=== PATIENT | female | born 1960 | race Caucasian/White ===

== ENCOUNTER 2016-09-27 08:41 | Emergency (ER) | payer MEDICAID ==
[~2016-09-27] VITALS: Ht 157.5 cm; Wt 138.7 kg
[~2016-09-27 08:41] MED LIST: ACET-1757 PO; ALLO300T PO; ALPR-475 PO; ALPR0.5T10 PO; ALPR0.5T6 PO; AMIO200T PO; AMIO400T4 PO; AMLO10TA2 PO; AMLO5TAB2 PO; AMOX-367 PO; AMOX1TAB12 PO; AMOX1TAB64 PO; ASPI-496 PO; ATOR80TA75 PO; AZIT500T PO; BISA10SU54 PR; BUME1TAB21 PO; CALC0.25 PO; CARV6.252 PO; CEFD300C2 PO; CEPH-376 PO; CETI10TA18 PO; CLIN300C93 PO; CLON0.1T PO; CLOP75TA22 PO; COLC0.6T37 PO; DOCU-30 PO; DOXY100T PO; ERGO500017 PO; FEBU40TA PO; FERR325T20 PO; FLUT1DIS5 IH; FURO-92 PO; FURO40TA6 PO; FURO80TA77 PO; GLYB2.5T2 PO; GLYB5TAB3 PO; GUAI200T3 PO; GUAI237S4 PO; HYDR-3138 PO; HYDR-3342 PO; INDO50CA PO; INSU100V10 SC; INSU100V13 SQ-INSULIN; INSU100V5 SQ-INSULIN; IPRA3AMP INH; LACT1CAP24 PO; LEVO250T23 PO; LEVO25TA2 PO; LEVO750T26 PO; LINE600T37 PO; LISI2.5T PO; LOSA50TA2 PO; METF500T4 PO; METO2.5T PO; METO25TA35 PO; METO5TAB5 PO; NITR100C6 PO; NITR50CA11 PO; NYST15PO9 TP; PANT40TA3 PO; POTA10TA11 PO; POTA20PA PO; POTA20TA14 PO; POTA20TA6 PO; POTA20TA89 PO; PRED10TA14 PO; PRED20TA PO; PRED5TAB PO; RIVA20TA PO; ROFL500T PO; SPIR50TA PO; TRAM50TA2 PO; WARF1TAB7 PO; WARF2.5T PO; WARF5TAB PO; WARF5TAB7 PO; ZOLP10TA5 PO
[2016-09-27 09:55] LABS: HEMOGLOBIN 10.5 g/dL (11.7-16.4)
[2016-09-27 10:07] LABS: BLOOD UREA NITROGEN 100 mg/dL (7-18)
[2016-09-27 11:21] VITALS: BP 102/40
[2016-09-27] MEDS ORDERED: SEVE800T PO (11:29)
== END 2016-09-27 12:11 | disposition home or self-care (01) ==
LOC: ED 11:40
DX: N18.6 End stage renal disease (principal); E66.01 Morbid (severe) obesity due to excess calories; D64.9 Anemia, unspecified; G89.29 Other chronic pain; Z99.2 Dependence on renal dialysis; I73.9 Peripheral vascular disease, unspecified; J44.9 Chronic obstructive pulmonary disease, unspecified; I48.91 Unspecified atrial fibrillation; I50.9 Heart failure, unspecified; Z86.73 Personal history of transient ischemic attack (TIA), and cerebral infarction without residual deficits; Z88.1 Allergy status to other antibiotic agents
CPT/HCPCS: 36415; 74176; 80048; 82040; 85025

== ENCOUNTER → 2016-11-02 | Outpatient (CLI) | payer MEDICAID ==
[~2016-11-02] MED LIST changes: -CEFD300C2 PO; +CEFD300C37 PO; +SEVE800T PO
== END | disposition home or self-care (01) ==
LOC: WOUND 09:40
PROVIDERS: ATTEND Internal Medicine
DX: E11.622 Type 2 diabetes mellitus with other skin ulcer (principal); L89.892 Pressure ulcer of other site, stage 2; E78.5 Hyperlipidemia, unspecified; I48.91 Unspecified atrial fibrillation; G47.33 Obstructive sleep apnea (adult) (pediatric); E11.22 Type 2 diabetes mellitus with diabetic chronic kidney disease; I13.2 Hypertensive heart and chronic kidney disease with heart failure and with stage 5 chronic kidney disease, or end stage renal disease; I50.9 Heart failure, unspecified; N18.6 End stage renal disease; Z99.2 Dependence on renal dialysis; E66.01 Morbid (severe) obesity due to excess calories; Z68.43 Body mass index [BMI] 50.0-59.9, adult; Z72.89 Other problems related to lifestyle
CPT/HCPCS: 97597; 99215

== ENCOUNTER 2016-12-29 07:07 | Emergency (ER) | payer MEDICAID ==
[~2016-12-29] VITALS: Ht 157.5 cm; Wt 140.0 kg
[2016-12-29] MEDS ORDERED: OXYcodone/APAP 5/325MG TABLET PO ONE (07:30)
[2016-12-29] MEDS ORDERED: OXYcodone/APAP 5/325MG TABLET ONE (07:50)
[2016-12-29 10:36] VITALS: BP 129/62
== END 2016-12-29 10:38 | disposition home or self-care (01) ==
LOC: ED 07:23
DX: S92.325A Nondisplaced fracture of second metatarsal bone, left foot, initial encounter for closed fracture (principal); S82.62XA Displaced fracture of lateral malleolus of left fibula, initial encounter for closed fracture; J44.9 Chronic obstructive pulmonary disease, unspecified; I48.91 Unspecified atrial fibrillation; E03.9 Hypothyroidism, unspecified; E11.9 Type 2 diabetes mellitus without complications; I50.9 Heart failure, unspecified; I73.9 Peripheral vascular disease, unspecified; I11.0 Hypertensive heart disease with heart failure; Z86.73 Personal history of transient ischemic attack (TIA), and cerebral infarction without residual deficits; Z79.01 Long term (current) use of anticoagulants; W01.0XXA Fall on same level from slipping, tripping and stumbling without subsequent striking against object, initial encounter; Y93.89 Activity, other specified; Y92.098 Other place in other non-institutional residence as the place of occurrence of the external cause; Y99.8 Other external cause status
CPT/HCPCS: 29515; 36415; 85610

== ENCOUNTER 2017-08-01 16:52 | Inpatient (IN) | payer MEDICARE ==
[~2017-08-01] VITALS: Ht 157.5 cm; Wt 143.2 kg
[~2017-08-01 16:52] MED LIST changes: -AMIO400T4 PO; +AMIO400T5 PO; +ATOR-2 PO; -ATOR80TA75 PO; +CINA30TA2 PO; +CLIN300C8 PO; -CLIN300C93 PO; -CLOP75TA22 PO; +CLOP75TA52 PO; +DOCU-131 PO; -DOCU-30 PO; +FERR325T18 PO; -FERR325T20 PO; -HYDR-3138 PO; +HYDR-3237 PO; -INSU100V10 SC; +INSU100V11 SC; -SEVE800T PO; +SEVE800T7 PO
[2017-08-01] MEDS ORDERED: ALBUTEROL/IPRATROPIUM 2.5MG/0.5MG, 3 ML NPPB ONE (17:30)
[2017-08-01] MEDS ORDERED: ALBUTEROL/IPRATROPIUM 2.5MG/0.5MG, 3 ML ONE (17:38)
[2017-08-01 18:02] LABS: ALBUMIN 2.5 g/dL (3.4-5.0); ANION GAP 11 mmol/L (5-15); CHLORIDE 95 mmol/L (98-107); CREATININE 3.95 mg/dL (0.55-1.02)
[2017-08-01 18:06] LABS: TROPONIN I < 0.015 ng/mL (0.000-0.045)
[2017-08-01 18:11] LABS: MEAN CORPUSCULAR HEMOGLOBIN 31.5 pg (27.0-34.8); MEAN CORPUSCULAR HGB CONC 32.2 g/dL (32.4-35.8); MEAN CORPUSCULAR VOLUME 97.9 fL (80-100); MEAN PLATELET VOLUME 7.9 fL (7.4-10.4); PLATELET COUNT 405 x10^3/uL (130-400); RED BLOOD COUNT 2.88 x10^6/uL (3.82-5.3); RED CELL DISTRIBUTION WIDTH 18.2 % (9.6-15.2)
[2017-08-01 18:12] LABS: MD YES
[2017-08-01 18:15] LABS: BAND#(MANUAL) 0.17 x10^3/uL; BANDS%(MANUAL) 2 % (0-7); LYMPH#(MANUAL) 0.78 x10^3/uL (1-3.4); LYMPHS% (MANUAL) 9 % (22-44); MONOS#(MANUAL) 1.04 x10^3/uL (0.3-2.7); MONOS% (MANUAL) 12 % (2-9); MYELOCYTES# (MANUAL) 0.26 x10^3/uL (0-0); MYELOCYTES% (MANUAL) 3 % (0-0); SEG#(MANUAL) 6.35 x10^3/uL (1.8-6.8); SEGS% (MANUAL) 73 % (42-75)
[2017-08-01 18:16] LABS: ANISOCYTOSIS 1+; METAMYELOCYTES# (MANUAL) 0.09 x10^3/uL (0-0); METAMYELOCYTES% (MANUAL) 1 % (0-1); POLYCHROMASIA 1+
[2017-08-01 18:17] LABS: <PLATELET ESTIMATE> INCREASED; LARGE PLATELETS 1+
[2017-08-01] MEDS ORDERED: methylPREDNISolone SOD SUCC 125 MG/2 ML ONE (19:59)
[2017-08-01] MEDS: methylPREDNISolone SOD SUCC 125 MG/2 ML IVPush SCH ×2 (20:17→21:47)
[2017-08-01] MEDS ORDERED: ALBU18HF INH (20:24)
[2017-08-01] MEDS ORDERED: NYST1POW2 TP (20:28)
[2017-08-01] MEDS ORDERED: SEVE800T8 PO (20:30)
[2017-08-01 21:35] VITALS: BP 151/63
[2017-08-01 21:58] LABS: INTERNATIONAL NORMALIZED RATIO 2.5 (0.93-1.1); PROTHROMBIN TIME 25.3 Seconds (9.6-11.5)
[2017-08-01] MEDS ORDERED: ONDANSETRON ODT 4 MG PO PRN (22:00)
[2017-08-01] MEDS ORDERED: ONDANSETRON 2MG/ML, 2ML IVPush PRN (22:00)
[2017-08-01] MEDS ORDERED: GUAIFENESIN/DM 200-20MG, 10ML UDC PO PRN (22:00)
[2017-08-01] MEDS ORDERED: AMPICILLIN/SULBACTAM 3 GM in SODIUM CHLORIDE 0.9% 100 ML IV SCH (22:00)
[2017-08-01] MEDS ORDERED: WARFARIN 2.5 MG TABLET PO-COUM ONE (22:30)
[2017-08-01] MEDS ORDERED: SEVELAMER 800MG TABLET PO SCH (23:00)
[2017-08-01] MEDS: CINACALCET 30 MG TABLET PO SCH (23:03)
[2017-08-01] MEDS ORDERED: ALBUTEROL SULFATE 2.5 MG/3 ML NPPB PRN (23:30)
[2017-08-01 23:44] LABS: TROPONIN I < 0.015 ng/mL (0.000-0.045)
[2017-08-02] MEDS: ZOLPIDEM 10MG TABLET PO PRN ×2 (01:27→22:54)
[2017-08-02 01:28] VITALS: BP 98/62
[2017-08-02 03:24] LABS: BASOPHILS # (AUTO) 0.01 x10^3/uL (0-0.1); BASOPHILS % (AUTO) 0 % (0-1); EOSINOPHILS # (AUTO) 0.02 x10^3/uL (0-0.4); EOSINOPHILS % (AUTO) 0 % (1-7); LYMPHOCYTES # (AUTO) 0.48 x10^3/uL (1-3.4); LYMPHOCYTES % (AUTO) 7 % (22-44); MD NO; MEAN CORPUSCULAR HEMOGLOBIN 31.6 pg (27.0-34.8); MEAN CORPUSCULAR HGB CONC 32.3 g/dL (32.4-35.8); MEAN CORPUSCULAR VOLUME 97.7 fL (80-100); MEAN PLATELET VOLUME 7.9 fL (7.4-10.4); MONOCYTES # (AUTO) 0.32 x10^3/uL (0.2-0.8); MONOCYTES % (AUTO) 4 % (2-9); NEUTROPHILS # (AUTO) 6.49 x10^3/uL (1.8-6.8); NEUTROPHILS % (AUTO) 89 % (42-75); PLATELET COUNT 353 x10^3/uL (130-400); RED BLOOD COUNT 2.62 x10^6/uL (3.82-5.3); RED CELL DISTRIBUTION WIDTH 18.6 % (9.6-15.2)
[2017-08-02 03:34] LABS: ALBUMIN 2.3 g/dL (3.4-5.0); ANION GAP 11 mmol/L (5-15); CALCIUM 8.8 mg/dL (8.5-10.1); CHLORIDE 96 mmol/L (98-107)
[2017-08-02 03:40] LABS: ALANINE AMINOTRANSFERASE 29 U/L (12-78); ALKALINE PHOSPHATASE 284 U/L (45-117); BILIRUBIN,TOTAL 0.5 mg/dL (0.2-1.0); CREATININE 5.78 mg/dL (0.55-1.02); TOTAL PROTEIN 7.9 g/dL (6.4-8.2); TROPONIN I < 0.015 ng/mL (0.000-0.045)
[2017-08-02] MEDS ORDERED: SEVE800T8 PO (07:39)
[2017-08-02 07:42] VITALS: BP 97/65
[2017-08-02] MEDS ORDERED: SEVELAMER 800MG TABLET PO PRN (08:30)
[2017-08-02 08:31] LABS: INTERNATIONAL NORMALIZED RATIO 2.89 (0.93-1.1); PROTHROMBIN TIME 29.2 Seconds (9.6-11.5)
[2017-08-02] MEDS ORDERED: WARFARIN 5 MG TABLET PO-COUM SCH (09:00)
[2017-08-02] MEDS ORDERED: CINACALCET 30 MG TABLET PO SCH (09:00)
[2017-08-02] MEDS: SEVELAMER 800MG TABLET PO SCH ×3 (09:09→16:35)
[2017-08-02] MEDS: LEVOTHYROXINE 25 MCG TABLET PO SCH (09:11)
[2017-08-02] MEDS: ALLOPURINOL 300 MG TABLET PO SCH (09:11)
[2017-08-02] MEDS: AMIODARONE 200 MG TABLET PO SCH (09:11)
[2017-08-02] MEDS: INSULIN LISPRO 100 UNITS/ML, PEN SQ-INSULIN SCH ×4 (10:24→20:47)
[2017-08-02 13:36] VITALS: BP 93/50
[2017-08-02] MEDS ORDERED: WARFARIN 2.5 MG TABLET PO-COUM ONE ×2 (15:48→18:00)
[2017-08-02 19:17] VITALS: BP 146/69
[2017-08-02] MEDS: ATORVASTATIN 80 MG TABLET PO SCH (20:23)
[2017-08-02] MEDS: CINACALCET 30 MG TABLET PO SCH (20:25)
[2017-08-03 01:34] VITALS: BP 108/69
[2017-08-03 06:05] LABS: BASOPHILS % (AUTO) 0 % (0-1); EOSINOPHILS % (AUTO) 0 % (1-7); LYMPHOCYTES # (AUTO) 0.67 x10^3/uL (1-3.4); LYMPHOCYTES % (AUTO) 6 % (22-44); MD NO; MEAN CORPUSCULAR HEMOGLOBIN 31.9 pg (27.0-34.8); MEAN CORPUSCULAR HGB CONC 32.6 g/dL (32.4-35.8); MEAN CORPUSCULAR VOLUME 97.8 fL (80-100); MEAN PLATELET VOLUME 8.4 fL (7.4-10.4); MONOCYTES # (AUTO) 1.03 x10^3/uL (0.2-0.8); MONOCYTES % (AUTO) 10 % (2-9); NEUTROPHILS # (AUTO) 9.08 x10^3/uL (1.8-6.8); NEUTROPHILS % (AUTO) 84 % (42-75); PLATELET COUNT 383 x10^3/uL (130-400); RED BLOOD COUNT 2.53 x10^6/uL (3.82-5.3); RED CELL DISTRIBUTION WIDTH 18.7 % (9.6-15.2)
[2017-08-03 06:11] LABS: CHLORIDE 96 mmol/L (98-107)
[2017-08-03 06:16] LABS: ANION GAP 15 mmol/L (5-15); CALCIUM 8.6 mg/dL (8.5-10.1); CREATININE 8.03 mg/dL (0.55-1.02)
[2017-08-03 06:17] LABS: INTERNATIONAL NORMALIZED RATIO 3.76 (0.93-1.1); PROTHROMBIN TIME 37.7 Seconds (9.6-11.5)
[2017-08-03 07:43] VITALS: BP 113/76
[2017-08-03] MEDS: INSULIN LISPRO 100 UNITS/ML, PEN SQ-INSULIN SCH ×3 (07:44→16:32)
[2017-08-03] MEDS: SEVELAMER 800MG TABLET PO SCH ×3 (07:50→17:56)
[2017-08-03] MEDS: ALLOPURINOL 300 MG TABLET PO SCH (07:50)
[2017-08-03] MEDS: LEVOTHYROXINE 25 MCG TABLET PO SCH (07:50)
[2017-08-03] MEDS: AMIODARONE 200 MG TABLET PO SCH (07:50)
[2017-08-03 14:30] VITALS: BP 124/65
[2017-08-03] MEDS ORDERED: WARFARIN 1 MG TABLET PO-COUM ONE (18:00)
[2017-08-03 19:55] VITALS: BP 106/68
[2017-08-03] MEDS: CINACALCET 30 MG TABLET PO SCH (20:19)
[2017-08-03] MEDS: ATORVASTATIN 80 MG TABLET PO SCH (20:19)
[2017-08-04] MEDS ORDERED: ALLOPURINOL 100 MG TABLET PO SCH (09:00)
== END 2017-08-03 20:40 | disposition home or self-care (01) | DRG 189 ==
LOC: ED 18:58 → EDIP 20:42 → 5SO 21:33
PROVIDERS: ADMIT Internal Medicine; ATTEND Internal Medicine
PROC: 5A1D70Z Performance of Urinary Filtration, Intermittent, Less than 6 Hours Per Day (ICD-10-PCS; principal; 2017-08-01)
DX: J96.21 Acute and chronic respiratory failure with hypoxia (principal); I13.2 Hypertensive heart and chronic kidney disease with heart failure and with stage 5 chronic kidney disease, or end stage renal disease; E43 Unspecified severe protein-calorie malnutrition; E11.22 Type 2 diabetes mellitus with diabetic chronic kidney disease; I27.20 Pulmonary hypertension, unspecified; E66.01 Morbid (severe) obesity due to excess calories; E11.51 Type 2 diabetes mellitus with diabetic peripheral angiopathy without gangrene; I48.2 Chronic atrial fibrillation; N18.6 End stage renal disease; E87.1 Hypo-osmolality and hyponatremia; I50.32 Chronic diastolic (congestive) heart failure; N25.81 Secondary hyperparathyroidism of renal origin; Z68.43 Body mass index [BMI] 50.0-59.9, adult; N25.0 Renal osteodystrophy; D63.1 Anemia in chronic kidney disease; E03.9 Hypothyroidism, unspecified; E78.5 Hyperlipidemia, unspecified; F41.9 Anxiety disorder, unspecified; F51.04 Psychophysiologic insomnia; G47.33 Obstructive sleep apnea (adult) (pediatric); G89.4 Chronic pain syndrome; I87.2 Venous insufficiency (chronic) (peripheral); J44.9 Chronic obstructive pulmonary disease, unspecified; Z79.01 Long term (current) use of anticoagulants; Z80.3 Family history of malignant neoplasm of breast; Z86.73 Personal history of transient ischemic attack (TIA), and cerebral infarction without residual deficits; Z99.81 Dependence on supplemental oxygen; Z99.2 Dependence on renal dialysis
CPT/HCPCS: 36415; 71045; 80048; 80053; 82040; 82962; 83735; 83880; 84100; 84443; 84484; 85025; 85610; 93005; 93306; 94640; 99285; J0295; J7620; J1815; J2930

== ENCOUNTER 2017-08-07 04:00 | Emergency (ER) | payer MEDICARE ==
[~2017-08-07] VITALS: Ht 157.5 cm; Wt 143.7 kg
[~2017-08-07 04:00] MED LIST changes: +ALBU18HF INH; +CALCIUM CHLORIDE 13.6 MEQ/10 ML ONE; +EPINEPHRINE SYRINGE 0.1 MG/ML, 10ML ONE; +NYST1POW2 TP; +SEVE800T8 PO; +WARF-36 PO; -WARF1TAB7 PO; +WARF1TAB74 PO; -WARF5TAB7 PO
[2017-08-07 04:16] VITALS: BP 96/33
[2017-08-07] MEDS ORDERED: SODIUM CHLORIDE 0.9% 1,000ML IVBOLUS ONE (05:00)
[2017-08-07] MEDS ORDERED: CODE BLUE RESPONSE XX ONE (05:30)
[2017-08-07] MEDS ORDERED: ETOMIDATE 40 MG/20 ML ONE (10:58)
[2017-08-07] MEDS ORDERED: VECURONIUM 10 MG ONE (10:58)
[2017-08-07] MEDS ORDERED: EPINEPHRINE SYRINGE 0.1 MG/ML, 10ML ONE (11:10)
== END 2017-08-07 09:09 | disposition expired ==
LOC: MERGE 04:00 → EDBD 04:00 → ED 04:55
DX: I46.9 Cardiac arrest, cause unspecified (principal); E78.5 Hyperlipidemia, unspecified; E03.9 Hypothyroidism, unspecified; J44.9 Chronic obstructive pulmonary disease, unspecified; I48.91 Unspecified atrial fibrillation; E66.01 Morbid (severe) obesity due to excess calories; J96.11 Chronic respiratory failure with hypoxia; I13.0 Hypertensive heart and chronic kidney disease with heart failure and stage 1 through stage 4 chronic kidney disease, or unspecified chronic kidney disease; N18.4 Chronic kidney disease, stage 4 (severe); I50.9 Heart failure, unspecified; E11.9 Type 2 diabetes mellitus without complications; R06.89 Other abnormalities of breathing; Z99.2 Dependence on renal dialysis; Z68.41 Body mass index [BMI] 40.0-44.9, adult; Z79.01 Long term (current) use of anticoagulants
CPT/HCPCS: 31500; 36415; 71045; 80047; 84484; 87040; 87077; 87186; 92950; 93005; 96360; 99291; 99292; J7030; 94002